=== PATIENT | male | born 1970 | race Caucasian/White ===

== ENCOUNTER 2018-01-07 18:20 | Emergency (ER) | payer OTHER ==
[2018-01-07] MEDS: ONDANSETRON 4 MG INJ IV (19:22)
[2018-01-07] MEDS: SOD CHLORIDE 0.9% 1,000 ML IV (19:23)
[2018-01-07 19:28] LABS: ADD MAN DIFF? NO
[2018-01-07 19:32] LABS: BASOPHIL # 0.1 10^3/ul (0.0-0.1); BASOPHILS % 0.8 % (0.0-2.0); EOSINOPHILS # 0.3 10^3/ul (0.0-0.5); EOSINOPHILS % 1.8 % (0.0-7.0); HEMATOCRIT 44.8 % (42.0-52.0); HEMOGLOBIN 14.8 g/dl (14.0-18.0); LYMPHOCYTES # 3.4 10^3/ul (0.8-2.9); MEAN CORPUSCULAR VOLUME 84.7 fl (82.0-101.0); MONOCYTE # 0.8 10^3/ul (0.3-0.9); MONOCYTES % 5.4 % (0.0-11.0); NEUTROPHIL # 10.1 10^3/ul (1.6-7.5); NEUTROPHILS % 68.7 % (39.0-77.0); PLATELET COUNT 347 10^3/UL (140-415); RED BLOOD COUNT 5.29 10^6/ul (4.70-6.10); RED CELL DISTRIBUTION WIDTH 13.2 % (11.5-14.5)
[2018-01-07 19:32] LABS: WHITE BLOOD COUNT 14.7 10^3/ul (4.8-10.8)
[2018-01-07 19:49] LABS: ALANINE AMINOTRANSFERASE 28 IU/L (13-69); ALBUMIN 4.9 g/dl (3.3-4.9); ALBUMIN/GLOBULIN RATIO 1.81; ALKALINE PHOSPHATASE 64 IU/L (42-121); ANION GAP 16 (8-16); ASPARTATE AMINO TRANSFERASE 20 IU/L (15-46); BILIRUBIN,INDIRECT 0.6 mg/dl (0-1.1); BILIRUBIN,TOTAL 0.6 mg/dl (0.2-1.3); BLOOD UREA NITROGEN 15 mg/dl (7-20); CALCIUM 9.8 mg/dl (8.4-10.2); CARBON DIOXIDE 24 mmol/L (21-31); CHLORIDE 106 mmol/L (97-110); CREATININE 1.01 mg/dl (0.61-1.24); GLUCOSE 136 mg/dl (70-220); POTASSIUM 4.6 mmol/L (3.5-5.1); SODIUM 141 mmol/L (135-144); TOTAL PROTEIN 7.6 g/dl (6.1-8.1)
[2018-01-07 20:01] LABS: TROPONIN-I < 0.010 ng/ml (0.000-0.120)
== END 2018-01-07 20:47 | disposition home or self-care (01) ==
LOC: FTE 18:20
DX: S00.03XA Contusion of scalp, initial encounter (principal); F17.210 Nicotine dependence, cigarettes, uncomplicated; R42 Dizziness and giddiness; W21.04XA Struck by golf ball, initial encounter; Y92.9 Unspecified place or not applicable
CPT/HCPCS: 70450; 80053; 84484; 85025; 93005; 96374; 99285-25